=== PATIENT | female | born 1935 | race Caucasian/White ===

== ENCOUNTER 2017-03-05 15:56 | Inpatient (IN) | payer MEDICARE, BC ==
[2017-03-05 17:00] LABS: ADD MAN DIFF? NO
[2017-03-05 17:06] LABS: BASOPHILS % 0.5 % (0.0-2.0); EOSINOPHILS # 0.4 10^3/ul (0.0-0.5); EOSINOPHILS % 6.8 % (0.0-7.0); HEMATOCRIT 34.2 % (37.0-47.0); HEMOGLOBIN 11.1 g/dl (12.0-16.0); LYMPHOCYTES # 1.5 10^3/ul (0.8-2.9); MEAN CORPUSCULAR HEMOGLOBIN 26.3 pg (29.0-33.0); MEAN CORPUSCULAR HGB CONC 32.5 g/dl (32.0-37.0); MEAN PLATELET VOLUME 9.9 fl (7.4-10.4); MONOCYTE # 0.7 10^3/ul (0.3-0.9); MONOCYTES % 11.2 % (0.0-11.0); NEUTROPHIL # 3.4 10^3/ul (1.6-7.5); NEUTROPHILS % 56.3 % (39.0-77.0); PLATELET COUNT 298 10^3/UL (140-415); RED BLOOD COUNT 4.22 10^6/ul (4.20-5.40); RED CELL DISTRIBUTION WIDTH 15.2 % (11.5-14.5)
[2017-03-05 17:27] LABS: D-DIMER 2446.81 ng/ml (<460)
[2017-03-05 17:43] LABS: ANION GAP 12 (8-16); BLOOD UREA NITROGEN 10 mg/dl (7-20); CALCIUM 8.2 mg/dl (8.4-10.2); CARBON DIOXIDE 25 mmol/L (21-31); CHLORIDE 105 mmol/L (97-110); GLUCOSE 117 mg/dl (70-220); POTASSIUM 3.4 mmol/L (3.5-5.1); SODIUM 139 mmol/L (135-144)
[2017-03-05] MEDS: SOD CHLORIDE 0.9% 100 ML (18:20)
[2017-03-05] MEDS: IODIXANOL LOCM 100 ML BTL (18:20)
[2017-03-05 18:26] LABS: TROPONIN-I < 0.012 ng/ml (0.00-0.12)
[2017-03-05] MEDS: HYDROmorphONE 0.5 MG/0.5 ML SYG IV (22:23)
[2017-03-05] MEDS ORDERED: ONDANSETRON 4 MG INJ IV (22:30)
[2017-03-05] MEDS ORDERED: BISACODYL (EC) 5 MG TAB PO (22:30)
[2017-03-05] MEDS ORDERED: DOCUSATE SODIUM 100 MG CAP PO (22:30)
[2017-03-05] MEDS ORDERED: NACL 0.9% 3 ML SYG IV (22:30)
[2017-03-05] MEDS ORDERED: ALBUTEROL HFA 8 GM INHALER INH (22:30)
[2017-03-05] MEDS ORDERED: ACETAMINOPHEN 325 MG TAB PO (22:30)
[2017-03-05] MEDS ORDERED: LEVALBUTEROL (NEB) 0.63 MG/3 ML AMP HHN (23:00)
[2017-03-05] MEDS: LORAZEPAM 2 MG INJ IV (23:33)
[2017-03-05 23:36] LABS: CREATINE KINASE 25 IU/L (23-200)
[2017-03-05 23:37] LABS: MAGNESIUM 2.2 mg/dl (1.7-2.5)
[2017-03-05 23:49] LABS: CK-MB 0.26 ng/ml (0.0-2.4)
[2017-03-05 23:56] LABS: TROPONIN-I < 0.012 ng/ml (0.00-0.12)
[2017-03-06 00:04] LABS: CARBON DIOXIDE 23 mmol/L (21-31); CHLORIDE 107 mmol/L (97-110); POTASSIUM 3.5 mmol/L (3.5-5.1); SODIUM 140 mmol/L (135-144)
[2017-03-06 00:05] LABS: ALANINE AMINOTRANSFERASE 26 IU/L (13-69); ALBUMIN 3.6 g/dl (3.3-4.9); ALBUMIN/GLOBULIN RATIO 1.05; ALKALINE PHOSPHATASE 79 IU/L (42-121); ANION GAP 14 (8-16); ASPARTATE AMINO TRANSFERASE 27 IU/L (15-46); BILIRUBIN,INDIRECT 0.1 mg/dl (0-1.1); BILIRUBIN,TOTAL 0.1 mg/dl (0.2-1.3); BLOOD UREA NITROGEN 10 mg/dl (7-20); CALCIUM 8.4 mg/dl (8.4-10.2); GLUCOSE 114 mg/dl (70-220)
[2017-03-06 00:47] LABS: ADD UMIC YES; UR ASCORBIC ACID NEGATIVE (NEGATIVE); UR BILIRUBIN (Dip) NEGATIVE (NEGATIVE); UR BLOOD (Dip) 1+ mg/dL (NEGATIVE); UR CLARITY CLEAR (CLEAR); UR COLOR STRAW (YELLOW); UR GLUCOSE (Dip) NEGATIVE (NEGATIVE); UR KETONES (Dip) NEGATIVE (NEGATIVE); UR LEUKOCYTE ESTERASE (Dip) 3+ Leu/ul (NEGATIVE); UR NITRITE (Dip) NEGATIVE (NEGATIVE); UR RBC 3 /HPF (0-5); UR SPECIFIC GRAVITY (Dip) 1.034 (1.003-1.030); UR SQUAMOUS EPITHELIAL CELL FEW /HPF (FEW); UR TOTAL PROTEIN (Dip) NEGATIVE (NEGATIVE); UR UROBILINOGEN (Dip) NEGATIVE (NEGATIVE); UR WBC 12 /HPF (0-5)
[2017-03-06] MEDS: CEFTRIAXONE 1 GM/50 ML (PMX) 50 ML IVPB (02:07)
[2017-03-06] MEDS: ENOXAPARIN 80 MG/0.8 ML SYG SC ×2 (02:22→11:52)
[2017-03-06] MEDS ORDERED: KETOROLAC 15 MG INJ IV (03:30)
[2017-03-06] MEDS: AL HYDROX/MG HYDROX/SIMETH 30 ML CUP PO (04:04)
[2017-03-06 05:39] LABS: CREATINE KINASE 24 IU/L (23-200)
[2017-03-06 05:52] LABS: CK-MB 0.25 ng/ml (0.0-2.4); TROPONIN-I < 0.012 ng/ml (0.00-0.12)
[2017-03-06 07:28] LABS: ADD MAN DIFF? NO; BASOPHILS % 0.6 % (0.0-2.0); EOSINOPHILS # 0.6 10^3/ul (0.0-0.5); EOSINOPHILS % 8.8 % (0.0-7.0); HEMATOCRIT 37.5 % (37.0-47.0); HEMOGLOBIN 11.9 g/dl (12.0-16.0); LYMPHOCYTES # 1.6 10^3/ul (0.8-2.9); MEAN CORPUSCULAR HEMOGLOBIN 25.9 pg (29.0-33.0); MEAN CORPUSCULAR HGB CONC 31.7 g/dl (32.0-37.0); MEAN CORPUSCULAR VOLUME 81.7 fl (82.0-101.0); MEAN PLATELET VOLUME 9.9 fl (7.4-10.4); MONOCYTE # 0.7 10^3/ul (0.3-0.9); MONOCYTES % 10.6 % (0.0-11.0); NEUTROPHIL # 3.4 10^3/ul (1.6-7.5); NEUTROPHILS % 54.7 % (39.0-77.0); PLATELET COUNT 320 10^3/UL (140-415); RED BLOOD COUNT 4.59 10^6/ul (4.20-5.40); RED CELL DISTRIBUTION WIDTH 15.1 % (11.5-14.5)
[2017-03-06 07:28] LABS: WHITE BLOOD COUNT 6.2 10^3/ul (4.8-10.8)
[2017-03-06 07:58] LABS: ALANINE AMINOTRANSFERASE 29 IU/L (13-69); ALBUMIN 3.4 g/dl (3.3-4.9); ALBUMIN/GLOBULIN RATIO 1.13; ALKALINE PHOSPHATASE 64 IU/L (42-121); ANION GAP 13 (8-16); ASPARTATE AMINO TRANSFERASE 24 IU/L (15-46); BLOOD UREA NITROGEN 10 mg/dl (7-20); CALCIUM 8.8 mg/dl (8.4-10.2); CARBON DIOXIDE 28 mmol/L (21-31); CHLORIDE 106 mmol/L (97-110); CHOL/HDL RATIO 3.3 RATIO; CHOLESTEROL 155 mg/dl (100-200); CREATININE 0.85 mg/dl (0.44-1.00); GLUCOSE 96 mg/dl (70-220); HDL CHOLESTEROL 46 mg/dl (33-92); LDL CHOLESTEROL,CALCULATED 87 mg/dl; POTASSIUM 4.6 mmol/L (3.5-5.1); SODIUM 142 mmol/L (135-144); TOTAL PROTEIN 6.4 g/dl (6.1-8.1); TRIGLYCERIDES 108 mg/dl (0-149)
[2017-03-06 08:03] LABS: HEMOGLOBIN A1C 5.7 % (0-5.9)
[2017-03-06 08:09] LABS: CREATINE KINASE 30 IU/L (23-200)
[2017-03-06] MEDS: ASPIRIN (EC) 81 MG TAB PO (08:19)
[2017-03-06] MEDS: CYCLOBENZAPRINE 10 MG TAB PO (08:19)
[2017-03-06] MEDS: HYDROmorphONE 0.5 MG/0.5 ML SYG IV ×2 (08:29→21:17)
[2017-03-06 09:13] LABS: ERYTHROCYTE SEDIMENTATION RATE 34 mm/Hr (0-30)
[2017-03-06] MEDS: DORZOLAMIDE 2% 10 ML OPH BOTH EYES ×3 (11:45→21:19)
[2017-03-06] MEDS: RIVAROXABAN 15 MG TABLET PO (17:41)
[2017-03-06] MEDS: LATANOPROST 0.005% 2.5 ML OPH BOTH EYES (21:21)
[2017-03-07] MEDS: RIVAROXABAN 15 MG TABLET PO (08:02)
[2017-03-07] MEDS: DORZOLAMIDE 2% 10 ML OPH BOTH EYES ×2 (08:02→12:23)
[2017-03-07] MEDS: predniSONE 20 MG TAB PO (12:23)
[2017-03-07 13:43] LABS: ANA SCREEN NEGATIVE (NEGATIVE)
[2017-03-08] MEDS ORDERED: INFLUENZA VIRUS VACCINE 0.5 ML (DISPENSING) IM* (09:00)
== END 2017-03-07 13:35 | disposition home or self-care (01) | DRG 202 ==
LOC: TEL 22:33 → E/R 15:56
DX: J20.8 Acute bronchitis due to other specified organisms (principal); I82.412 Acute embolism and thrombosis of left femoral vein; N39.0 Urinary tract infection, site not specified; R07.9 Chest pain, unspecified; F41.9 Anxiety disorder, unspecified; J45.909 Unspecified asthma, uncomplicated; H40.9 Unspecified glaucoma; M79.7 Fibromyalgia; M35.3 Polymyalgia rheumatica; B96.5 Pseudomonas (aeruginosa) (mallei) (pseudomallei) as the cause of diseases classified elsewhere; Z79.82 Long term (current) use of aspirin; Z79.02 Long term (current) use of antithrombotics/antiplatelets; Z87.891 Personal history of nicotine dependence
CPT/HCPCS: 36415; 71045; 71275; 80048; 80053; 80061; 81001; 82550; 82553; 83036; 83735; 84443; 84484; 85025; 85378; 85651; 86038; 87086; 93005; 93306; 93970; 96374; 96375; 97163; 99285-25